=== PATIENT | male | born 1950 | race Caucasian/White ===

== ENCOUNTER → 2018-02-01 | Outpatient (CLI) | payer OTHER | LOC: BHLMT 08:30 | PROVIDERS: ATTEND Internal Medicine Cardiovascular Disease | DX: R47.1 Dysarthria and anarthria (principal) ==

== ENCOUNTER → 2018-02-02 | Outpatient (CLI) | payer OTHER ==
[~2018-02-02] MED LIST: GADOBUTROL 10 ML VIAL IVP ONE
== END ==
LOC: FIMAGING 09:13
PROVIDERS: ATTEND Psychiatry & Neurology Neurology
DX: M67.919 Unspecified disorder of synovium and tendon, unspecified shoulder (principal); R47.1 Dysarthria and anarthria
CPT/HCPCS: 70553; A9585